=== PATIENT | female | born 1935 | race Caucasian/White ===

== ENCOUNTER → 2018-02-08 11:17 | Outpatient (CLI) | payer MEDICARE, OTHER, SELFPAY ==
--- NOTE | 2018-02-08 | DI.RAD.S_ITS ---
PROCEDURE: XR CHEST 2V INDICATIONS: SCREENING FOR RESPIRATORY TUBERCULOSIS TECHNIQUE: 2 views of the chest were acquired. COMPARISON: [facility], CHEST 2 VIEW, 11/29/2015, 12:30. [facility], CHEST 2 VIEW, 12/25/2007, 17:38. [facility], CHEST 1 VIEW, 09/26/2007, 12:36. FINDINGS: Surgical changes and devices: None. Lungs and pleura: No pleural effusions or pneumothorax. Lungs are clear. Mediastinum: Mediastinal contours are normal. Heart size is normal. Bones and chest wall: No suspicious bony abnormalities. Soft tissues appear unremarkable. IMPRESSION: Mild interstitial prominence previously present, no pneumonia seen, no sign of active inflammation or chronic active tuberculosis. Linear atelectasis tracks slightly from the right hilum towards the right lateral pleural surface, previously present also in 2007 and 2006. Dictated by: Jamar Manjarrez M.D. on 02/08/2018 at 11:41 Approved by: Jamar Manjarrez M.D. on 02/08/2018 at 11:42
== END ==
PROVIDERS: Family Provider Internal Medicine; PCP Internal Medicine; Visit Provider Internal Medicine
DX: Z11.1 Encounter for screening for respiratory tuberculosis (principal)
CPT/HCPCS: 71046

== ENCOUNTER → 2018-03-24 17:13 | Outpatient (CLI) | payer MEDICARE, OTHER, SELFPAY ==
[2018-02-10 18:18] VITALS: BMI 37.5
[2018-03-28 04:17] LABS: QuantiFERON TB Positive (Negative)
== END ==
PROVIDERS: Family Provider Internal Medicine; PCP Internal Medicine; Visit Provider Physician Assistant
DX: L40.0 Psoriasis vulgaris (principal)
CPT/HCPCS: 36415; 86480

== ENCOUNTER → 2018-06-24 10:13 | Outpatient (CLI) | payer MEDICARE, OTHER, SELFPAY ==
[2018-02-10 18:18] VITALS: BMI 37.5
[2018-06-24 11:29] LABS: Alanine Aminotransferase 34 IU/L (9-52); Aspartate Aminotransferase 26 IU/L (14-36); BUN Creatinine Ratio 29.2 (6-22); Blood Urea Nitrogen 35 mg/dL (7-17); Calcium 9.3 mg/dL (8.4-10.2); Carbon Dioxide 27 mmol/L (22-32); Chloride 101 mmol/L (98-107); Cholesterol 163 mg/dL (140-199); Estimated Glomerular Filt Rate 43.1 mL/min (>60); Glucose 186 mg/dL (80-110); HDL Cholesterol 36 mg/dL (40-60); HEMOLYSIS < 15 (0-50); LDL Cholesterol Calculated 51 mg/dL (<100); Potassium 4.5 mmol/L (3.4-5.1); Sodium 139 mmol/L (137-145); Triglycerides 378 mg/dL (35-150)
[2018-06-24 12:19] LABS: TSH w/ Reflex to FT4 3.11 uIU/mL (0.47-4.68)
== END ==
PROVIDERS: PCP Internal Medicine; Visit Provider Internal Medicine
DX: I10 Essential (primary) hypertension (principal); E03.9 Hypothyroidism, unspecified; E78.2 Mixed hyperlipidemia
CPT/HCPCS: 36415; 80048; 80061; 84443; 84450; 84460

== ENCOUNTER → 2018-09-26 12:02 | Outpatient (CLI) | payer MEDICARE, OTHER, SELFPAY ==
[2018-02-10 18:18] VITALS: BMI 37.5
--- NOTE | 2018-09-26 12:05 | DI.RAD.S_ITS ---
PROCEDURE: XR CHEST 2V INDICATIONS: cough TECHNIQUE: 2 views of the chest were acquired. COMPARISON: [facility], CR, XR CHEST 2V, 02/08/2018, 11:20. FINDINGS: Surgical changes and devices: None. Lungs and pleura: No pleural effusions or pneumothorax. Mild pulmonary vascular congestion is seen. Increased bronchovascular markings and bilateral hilar region are noted with mild bronchial wall thickening. No definite focal infiltrate. Mediastinum: Mediastinal contours are normal. Heart size is normal. Bones and chest wall: No suspicious bony abnormalities. Soft tissues appear unremarkable. IMPRESSION: Suggestion of mild reactive airway disease such as bronchitis or asthma. No focal infiltrate. Dictated by: Shiv Hoover M.D. on 09/26/2018 at 13:15 Approved by: Shiv Hoover M.D. on 09/26/2018 at 13:18
== END ==
PROVIDERS: Family Provider Internal Medicine; PCP Internal Medicine; Visit Provider Physician Assistant
DX: R05 Cough (principal)
CPT/HCPCS: 71046

== ENCOUNTER 2018-09-29 20:27 | Emergency (ER) | payer MEDICARE, OTHER, SELFPAY ==
[2018-02-10 18:18] VITALS: BMI 37.5
[2018-09-29 20:41] VITALS: BP 171/108; PULSE 89; RESP 12; TEMP 36.6; O2SAT 98
[2018-09-29 20:48] VITALS: BP 171/108; PULSE 89; RESP 12; TEMP 36.6; O2SAT 98
--- NOTE | 2018-09-29 21:06 | DI.RAD.S_ITS ---
PROCEDURE: XR CHEST 2V INDICATIONS: short of breath, cough for 2 weeks TECHNIQUE: 2 views of the chest were acquired. COMPARISON: [facility], CR, XR CHEST 2V, 09/26/2018, 12:04. FINDINGS: Surgical changes and devices: None. Lungs and pleura: No pleural effusions or pneumothorax. She prominent perihilar patchy opacities, right greater left. There is also central airway thickening Mediastinum: Mediastinal contours are normal. Heart size is normal. Bones and chest wall: No suspicious bony abnormalities. Soft tissues appear unremarkable. IMPRESSION: Central airway thickening and prominent perihilar patchy opacities suggestive of viral/atypical pneumonia. Findings appear slightly worsened since 09/26/18 Dictated by: Jon Florian M.D. on 09/29/2018 at 21:25 Approved by: Jon Florian M.D. on 09/29/2018 at 21:26
--- NOTE | 2018-09-29 21:27 | ED.URI ---
HPI - URI/Sore Throat General Chief Complaint: Upper Respiratory Symptoms Stated Complaint: DIFFICULTY BREATHING Time Seen by Provider: 09/29/18 21:02 Source: patient and family Mode of arrival: ambulatory Limitations: no limitations History of Present Illness HPI Narrative: 83-year-old female, former smoker with history of AFib on anticoagulation presents with 2 weeks of upper respiratory symptoms including runny nose, sneezing and cough. She has had subjective low-grade fever but denies shaking chills. She has had no nausea, vomiting or diarrhea. She had a chest x-ray a few days ago and just today was in touch with her primary care provider whom started her on Levaquin, she has had 1 dose. She denies nausea, vomiting or diarrhea. She is not in significant respiratory distress and requires no supplemental oxygen MD Complaint: cough Onset (ago): day(s) Duration: constant Severity: mild Relieving factors: nothing Exacerbating factors: exertion Description of mucous: clear Able to tolerate fluids by mouth: Yes Associated symptoms: fever, rhinorrhea, nasal congestion and cough Related Data Home Medications Medication Instructions Recorded Confirmed LEVOTHYROXINE SODIUM (SYNTHROID) 0.125 mg PO DAILY #0 01/26/11 02/10/18 [CO Q-10] 1 tab PO DAILY #0 01/26/11 02/10/18 [OMEGA 3] 1,000 mg PO DAILY #0 01/26/11 02/10/18 [DTEZLA] 1 tab PO Q12H #0 07/27/17 02/10/18 [SUN-CHLORENA] 200 g PO 10XD #0 07/27/17 02/10/18 [TUMERIC] 1 cap PO DAILY #0 07/27/17 02/10/18 allopurinol 300 mg PO QDAY #0 07/27/17 02/10/18 atorvastatin 40 mg PO HS #0 07/27/17 02/10/18 cyanocobalamin (vitamin B-12) 1,000 mcg PO DAILY #0 07/27/17 02/10/18 diazepam 5 mg PO TID PRN 02/10/18 02/10/18 levothyroxine 125 mcg PO DAILY 02/10/18 02/10/18 valsartan-hydrochlorothiazide 320 mg PO DAILY 02/10/18 02/10/18 Previous Rx's Medication Instructions Recorded oxycodone 5 mg PO Q4-6H PRN #30 tab 02/10/18 hydroxyzine pamoate 25 mg PO Q6H PRN #30 cap 02/11/18 albuterol sulfate HFA 90 2 puff INHALATION Q4-6H PRN #8.5 09/26/18 mcg/actuation aerosol inhaler gram Allergies Allergy/AdvReac Type Severity Reaction Status Date / Time celecoxib [CELECOXIB] Allergy Intermediate rash Verified 09/29/18 20:43 ibuprofen [IBUPROFEN] Allergy Intermediate Facial Verified 09/29/18 20:43 Edema & Rash codeine [CODEINE] Allergy Unknown chest pain Verified 09/29/18 20:43 iodine [IODINE] Allergy Unknown Verified 09/29/18 20:43 NSAIDS (Non-Steroidal Allergy Unknown Verified 09/29/18 20:43 Anti-Inflamma [NSAIDS (NON-STEROIDAL ANTI-INFLAMMA] Penicillins [PENICILLINS] Allergy Unknown Verified 09/29/18 20:43 Review of Systems Review of Systems All systems reviewed & are unremarkable except as noted in HPI and below Constitutional Denies chills, Denies fever(s), Denies lethargy and Denies weakness Eyes Denies change in vision, Denies eye discharge, Denies irritation and Denies loss of vision ENT Ears, Nose, Mouth, and Throat: Denies change in voice, Denies neck pain and Denies sore throat Cardiovascular Denies chest pain, Denies irregular heart rhythm, Denies lightheadedness, Denies palpitations, Reports dyspnea, Denies dyspnea on exertion and Denies orthopnea Respiratory Reports cough, Reports dyspnea, Denies dyspnea on exertion and Reports wheezing Gastrointestinal Gastrointestinal: Denies abdominal pain, Denies change in bowel habits, Denies diarrhea, Denies nausea and Denies vomiting Genitourinary Denies hematuria, Denies flank pain, Denies urinary incontinence and Denies urinary urgency Musculoskeletal Denies neck pain Integumentary/Breasts Denies pruritus, Denies erythema, Denies rash and Denies wounds Neurologic Denies confusion, Denies loss of vision and Denies weakness Psychiatric Denies anxiety, Denies confusion, Denies depression, Denies homicidal ideation and Denies suicidal ideation Endocrine Denies palpitations Hematologic/Lymphatic Denies easy bruising Allergic/Immunologic Reports wheezing PFSH Medical History Cervical spondylosis with radiculopathy (Acute) Spinal stenosis in cervical region (Acute) Anginal pain (Acute) Unstable angina (Acute) Achilles bursitis or tendinitis (Acute) Angioneurotic edema, subsequent encounter (Acute) CVA (cerebral vascular accident) (Acute) Calcaneal spur (Acute) Cellulitis of left axilla (Acute) Cervical spinal stenosis (Acute) Chest pain, unspecified (Acute) Cholecystitis, acute (Acute) Chronic kidney disease (Acute) Dermatitis (Acute) Gout (Acute) 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 (Acute) Hyperlipemia (Acute) Hypothyroidism (Acute) Impaired fasting glucose (Acute) Insomnia (Acute) Kidney stone (Acute) PAD (peripheral artery disease) (Acute) Paresthesia of skin (Acute) Psoriasis (Acute) Right shoulder pain (Acute) Uric acid nephrolithiasis (Acute) Weakness (Acute) Surgical History History of cholecystectomy (Acute) Social History household members: family alcohol intake: current Exam Narrative Exam Narrative: 83-year-old female in no obvious or significant respiratory distress, pleasant Initial Vital Signs Initial Vital Signs: Vital Signs Temperature 97.9 F 09/29/18 20:41 Pulse Rate 89 09/29/18 20:41 Respiratory Rate 12 09/29/18 20:41 Blood Pressure 171/108 H 09/29/18 20:41 Pulse Oximetry 98 09/29/18 20:41 Const General: cooperative, well developed and in distress Nutritional Appearance: well nourished Orientation: alert, awake, oriented x3 and not confused [facility] Head: normal to inspection Ears: hearing grossly normal bilaterally Nose: external nose normal Face and sinus: normal facial exam Eyes General: appearance normal, both eyes and all related structures Eyelids: eyelids normal Conjunctivae: conjunctivae normal Sclera: sclerae normal Pupils: PERRL EOM: EOM intact bilaterally Neck Neck: normal visual inspection, trachea midline, No lymphadenopathy, No midline deformity and No JVD Lymphatic: No lymphedema Chest Chest: normal inspection of the chest Resp Effort & Inspection: normal respiratory effort, able to speak in complete sentences, no respiratory distress and no use of accessory muscles Auscultation: clear to auscultation bilaterally, crackles, no rales, no rhonchi and wheezes Cardio Rate: regular rate Rhythm: abnormal rhythm Heart Sounds: no click, no gallops, no murmurs and no rubs Pulses: normal peripheral pulses GI Inspection: non-distended Palpation: soft, no hepatosplenomegaly, No guarding, No pulsatile mass and No tender Auscultation: normal bowel sounds Back/Spine/Pelvis Back: No CVA tenderness Cervical Spine: cervical ROM normal and No pain with cervical ROM Thoracic/Lumbar Spine: thoracic and lumbar spine normal to inspection Neuro General: alert, oriented x3, gait normal and no focal motor deficits Speech: speech normal Extrem General: full ROM, no clubbing, cyanosis or edema, no pedal edema and no calf tenderness Course Orders Ordered: ED Orders 09/29/18 21:06 Chest [XR chest 2V] Stat 09/29/18 21:44 B Type Natriuretic Peptide Stat Basic Metabolic Panel Stat Complete Blood Count AUTO DIFF Stat Procalcitonin Stat Troponin I Stat Vital Signs - 8 hr 09/29/18 20:41 09/29/18 20:48 09/29/18 21:30 Temperature 97.9 F 97.9 F Pulse Rate 89 89 80 Respiratory Rate 12 12 22 Blood Pressure 171/108 H 171/108 H Blood Pressure [Left Arm] 161/80 H Pulse Oximetry 98 98 96 MDM - URI/Sore Throat Differential Diagnosis Differential diagnosis: Likely upper respiratory infection, viral infection, bronchitis and influenza Medical Records Attestation: I reviewed the patient's medical records. Lab Data Attestation: I reviewed the patient's lab results. Result diagrams: 09/29/18 21:44 09/29/18 21:44 Lab Results 09/29/18 09/29/18 09/29/18 Range/Units 21:44 21:44 21:44 WBC 13.4 H (4.5-11.0) X10^3/uL RBC 4.32 (4.0-5.2) X10^6/uL Hgb 12.9 (12.0-16.0) g/dL Hct 39.5 (36-46) % MCV 91.5 (80-100) fL MCH 29.8 (26-34) PG MCHC 32.5 (30-36) % RDW 15.0 H (11.6-14.8) % Plt Count 332 (150-400) X10^3/uL Neut % (Auto) 66.8 (50-75) % Lymph % (Auto) 22.0 L (25-40) % Mitchell % (Auto) 7.5 (3-14) % Eos % (Auto) 2.5 (2-4) % Baso % (Auto) 1.2 (0-2) % Neut # (Auto) 9000 H (9479-5762) /uL Sodium 139 (137-145) mmol/L Potassium 4.3 (3.4-5.1) mmol/L Chloride 99 (98-107) mmol/L Carbon Dioxide 28 (22-32) mmol/L BUN 30 H (7-17) mg/dL Creatinine 1.10 H (0.52-1.04) mg/dL Estimated GFR 47.7 L (>60) mL/min BUN/Creatinine Ratio 27.3 H (6-22) Glucose 143 H (80-110) mg/dL Calcium 9.2 (8.4-10.2) mg/dL Troponin I < 0.012 (0.01-0.034) ng/mL B-Natriuretic Peptide 228 H (<100) Procalcitonin < 0.05 (<0.5) ng/mL Imaging Data Chest x-ray: Radiologist's impression: View Report History Print [address] [address] XRay Report Signed Patient: Yulia Sow MR#: [id number] : 1935 Acct:[id number] Age/Sex: 83 / F Date of Service: 09/29/18 Loc: ED Accession Number: [id number] Procedure: XR chest 2V Ordering Provider: Howard Escobar D.O. PROCEDURE: XR CHEST 2V INDICATIONS: short of breath, cough for 2 weeks TECHNIQUE: 2 views of the chest were acquired. COMPARISON: [facility], , XR CHEST 2V, 09/26/2018, 12:04. FINDINGS: Surgical changes and devices: None. Lungs and pleura: No pleural effusions or pneumothorax. She prominent perihilar patchy opacities, right greater left. There is also central airway thickening Mediastinum: Mediastinal contours are normal. Heart size is normal. Bones and chest wall: No suspicious bony abnormalities. Soft tissues appear unremarkable. IMPRESSION: Central airway thickening and prominent perihilar patchy opacities suggestive of viral/atypical pneumonia. Findings appear slightly worsened since 09/26/18 Dictated by: Jon Florian M.D. on 09/29/2018 at 21:25 Approved by: Jon Florian M.D. on 09/29/2018 at 21:26 [facility] Narrative Medical decision making narrative: 83F with multiple commorbidities presents with URI x2 weeks. CXR x2 unremarkable. No oxygen requirements. Patient with good social support Discharge Plan Departure Patient Disposition: Home Clinical Impression: Atypical pneumonia Discharge Date/Time: 09/29/18 22:26 Interventions: ED Discharge Assessment Last Done: 09/29/18 22:23 Instructions: DI for Atypical Pneumonia Activity Restrictions/Additional Instructions: *You have been diagnosed with [ atypical (likely viral) pneumonia ] *What to do: *Take medications as directed *Follow up with your primary care provider in 2-3 days, call for an appointment. Let them know you were seen in the Emergency Department and that we ask that you be seen in follow up *Return to ER if you should have any new, worsening or concerning symptoms Prescriptions: No Action LEVOTHYROXINE SODIUM (SYNTHROID) tablet 0.125 mg PO DAILY Qty: 0 RF: 0 [CO Q-10] 1 tab PO DAILY Qty: 0 RF: 0 [OMEGA 3] 1,000 mg PO DAILY Qty: 0 RF: 0 atorvastatin 40 MG tablet 40 mg PO HS Qty: 0 RF: 0 allopurinol 300 MG tablet 300 mg PO QDAY Qty: 0 RF: 0 cyanocobalamin (vitamin B-12) 1,000 MCG tablet extended release 1,000 mcg PO DAILY Qty: 0 RF: 0 [DTEZLA] 1 tab PO Q12H Qty: 0 RF: 0 [SUN-CHLORENA] 200 g PO 10XD Qty: 0 RF: 0 [TUMERIC] 1 cap PO DAILY Qty: 0 RF: 0 albuterol sulfate 90 mcg/actuation HFA aerosol inhaler 2 puff INHALATION Q4-6H PRN (Reason: shortness of breath) Qty: 8.5 RF: 1 levothyroxine 125 mcg Tablet 125 mcg PO DAILY RF: 0 valsartan-hydrochlorothiazide 320 mg capsule 320 mg PO DAILY RF: 0 oxycodone 5 mg tablet 5 mg PO Q4-6H PRN (Reason: pain) Qty: 30 RF: 0 diazepam 5 MG tablet 5 mg PO TID PRN (Reason: Anxiety) RF: 0 hydroxyzine pamoate 25 mg Capsule 25 mg PO Q6H PRN (Reason: Nausea And Vomiting) Qty: 30 RF: 0 Referrals: Hollie Constantino MD [Primary Care Provider] -
[2018-09-29 21:30] VITALS: BP 161/80; PULSE 80; RESP 22; O2SAT 96
[2018-09-29 21:58] LABS: Add Manual Diff / Slide Review NO; Basophils Percent Auto 1.2 % (0-2); Eosinophils Percent Auto 2.5 % (2-4); Hematocrit 39.5 % (36-46); Hemoglobin 12.9 g/dL (12.0-16.0); Mean Corpuscular HGB Conc 32.5 % (30-36); Mean Corpuscular Hemoglobin 29.8 PG (26-34); Mean Corpuscular Volume 91.5 fL (80-100); Monocytes Percent Auto 7.5 % (3-14); Neutrophils Absolute Auto 9000 /uL (1500-7000); Neutrophils Percent Auto 66.8 % (50-75); Platelet Count 332 X10^3/uL (150-400); Red Blood Cell Count 4.32 X10^6/uL (4.0-5.2); White Blood Cell Count 13.4 X10^3/uL (4.5-11.0)
[2018-09-29 22:04] LABS: BUN Creatinine Ratio 27.3 (6-22); Blood Urea Nitrogen 30 mg/dL (7-17); Calcium 9.2 mg/dL (8.4-10.2); Carbon Dioxide 28 mmol/L (22-32); Chloride 99 mmol/L (98-107); Estimated Glomerular Filt Rate 47.7 mL/min (>60); Glucose 143 mg/dL (80-110); HEMOLYSIS < 15 (0-50); Potassium 4.3 mmol/L (3.4-5.1); Sodium 139 mmol/L (137-145)
[2018-09-29 22:16] LABS: Troponin I < 0.012 ng/mL (0.01-0.034)
[2018-09-29 22:17] LABS: B Type Natriuretic Peptide 228 (<100)
[2018-09-29 22:24] LABS: Procalcitonin < 0.05 ng/mL (<0.5)
== END 2018-09-29 22:26 | disposition home or self-care (01) ==
PROVIDERS: Emergency Provider Emergency Medicine; Family Provider Internal Medicine; PCP Internal Medicine
DX: J18.9 Pneumonia, unspecified organism (principal)
CPT/HCPCS: 36415; 71046; 80048; 83880; 84145; 84484; 85025; 99282; 99284

== ENCOUNTER → 2019-01-13 11:02 | Outpatient (CLI) | payer MEDICARE, OTHER, SELFPAY ==
[2018-02-10 18:18] VITALS: BMI 37.5
[2019-01-13 13:47] LABS: Alanine Aminotransferase 22 IU/L (9-52); Aspartate Aminotransferase 26 IU/L (14-36); BUN Creatinine Ratio 34.2 (6-22); Blood Urea Nitrogen 41 mg/dL (7-17); Calcium 9.5 mg/dL (8.4-10.2); Carbon Dioxide 24 mmol/L (22-32); Chloride 103 mmol/L (98-107); Cholesterol 221 mg/dL (140-199); Estimated Glomerular Filt Rate 43.1 mL/min (>60); Glucose 129 mg/dL (80-110); HDL Cholesterol 33 mg/dL (40-60); HEMOLYSIS < 15 (0-50); Potassium 4.8 mmol/L (3.4-5.1); Sodium 139 mmol/L (137-145); Triglycerides 449 mg/dL (35-150)
== END ==
PROVIDERS: Family Provider Naturopath; PCP Internal Medicine; Visit Provider Internal Medicine
DX: I10 Essential (primary) hypertension (principal); E78.2 Mixed hyperlipidemia
CPT/HCPCS: 36415; 80048; 80061; 84450; 84460

== ENCOUNTER → 2019-04-21 10:24 | Outpatient (CLI) | payer MEDICARE, OTHER, SELFPAY ==
[2018-02-10 18:18] VITALS: BMI 37.5
[2019-04-21 11:08] LABS: Hemoglobin A1C% w Est Avg Glu 6.1 % (4.0-6.0)
[2019-04-21 11:35] LABS: Blood Urea Nitrogen 29 mg/dL (7-17); Calcium 9.6 mg/dL (8.4-10.2); Carbon Dioxide 26 mmol/L (22-32); Chloride 104 mmol/L (98-107); Cholesterol 182 mg/dL (140-199); Estimated Glomerular Filt Rate 53.1 mL/min (>60); Glucose 133 mg/dL (80-110); HDL Cholesterol 32 mg/dL (40-60); HEMOLYSIS 23 (0-50); LDL Cholesterol Calculated 72 mg/dL (<100); Potassium 4.3 mmol/L (3.4-5.1); Sodium 139 mmol/L (137-145); Triglycerides 390 mg/dL (35-150)
[2019-04-21 12:03] LABS: TSH w/ Reflex to FT4 1.96 uIU/mL (0.47-4.68)
== END ==
PROVIDERS: Family Provider Naturopath; PCP Internal Medicine; Visit Provider Internal Medicine
DX: E11.9 Type 2 diabetes mellitus without complications (principal); I10 Essential (primary) hypertension; E03.9 Hypothyroidism, unspecified; E78.2 Mixed hyperlipidemia
CPT/HCPCS: 36415; 80048; 80061; 83036; 84443

== ENCOUNTER → 2019-11-09 13:36 | Outpatient (CLI) | payer MEDICARE, OTHER, SELFPAY ==
[2018-02-10 18:18] VITALS: BMI 37.5
[2019-11-09 14:21] LABS: Alanine Aminotransferase 27 IU/L (<35); Albumin 4.4 g/dL (3.5-5.0); Albumin Globulin Ratio 1.3 (1.0-2.8); Alkaline Phosphatase 93 U/L (38-126); Aspartate Aminotransferase 30 IU/L (14-36); Blood Urea Nitrogen 30 mg/dL (7-17); Calcium 9.7 mg/dL (8.4-10.2); Carbon Dioxide 24 mmol/L (22-32); Chloride 105 mmol/L (98-107); Cholesterol 198 mg/dL (140-199); Estimated Glomerular Filt Rate 53.1 mL/min (>60); Globulin 3.5 g/dL (1.7-4.1); Glucose 123 mg/dL (80-110); HDL Cholesterol 38 mg/dL (40-60); HEMOLYSIS < 15 (0-50); LDL Cholesterol Calculated 105 mg/dL (<100); Potassium 4.4 mmol/L (3.4-5.1); Sodium 140 mmol/L (137-145); Total Protein 7.9 g/dL (6.3-8.2); Triglycerides 273 mg/dL (35-150)
[2019-11-09 14:27] LABS: Hemoglobin A1C% w Est Avg Glu 6.6 % (4.0-6.0)
[2019-11-09 15:20] LABS: TSH w/ Reflex to FT4 4.68 uIU/mL (0.47-4.68)
== END ==
PROVIDERS: Family Provider Naturopath; PCP Internal Medicine; Referring Provider Internal Medicine; Visit Provider Internal Medicine
DX: E11.9 Type 2 diabetes mellitus without complications (principal); E03.9 Hypothyroidism, unspecified; I10 Essential (primary) hypertension; E78.2 Mixed hyperlipidemia; M1A.40X0 Other secondary chronic gout, unspecified site, without tophus (tophi)
CPT/HCPCS: 36415; 80053; 80061; 83036; 84443; 84550

== ENCOUNTER → 2020-05-13 10:50 | Outpatient (CLI) | payer MEDICARE, OTHER, SELFPAY ==
[2018-02-10 18:18] VITALS: BMI 37.5
[2020-05-13 12:24] LABS: Alanine Aminotransferase 18 IU/L (<35); Albumin 4.1 g/dL (3.5-5.0); Albumin Globulin Ratio 1.3 (1.0-2.8); Alkaline Phosphatase 95 U/L (38-126); Aspartate Aminotransferase 24 IU/L (14-36); BUN Creatinine Ratio 37.5 (6-22); Bilirubin Total 1.1 mg/dL (0.2-1.3); Blood Urea Nitrogen 39 mg/dL (7-17); Calcium 9.3 mg/dL (8.4-10.2); Carbon Dioxide 25 mmol/L (22-32); Chloride 103 mmol/L (98-107); Cholesterol 175 mg/dL (140-199); Estimated Glomerular Filt Rate 50.6 mL/min (>60); Globulin 3.2 g/dL (1.7-4.1); Glucose 121 mg/dL (80-110); HDL Cholesterol 34 mg/dL (40-60); HEMOLYSIS 20 (0-50); Hemoglobin A1C% w Est Avg Glu 6.5 % (4.0-6.0); LDL Cholesterol Calculated 83 mg/dL (<100); Potassium 5.1 mmol/L (3.4-5.1); Sodium 138 mmol/L (137-145); Total Protein 7.3 g/dL (6.3-8.2); Triglycerides 288 mg/dL (35-150)
== END ==
PROVIDERS: Family Provider Naturopath; PCP Internal Medicine; Referring Provider Internal Medicine; Visit Provider Internal Medicine
DX: I10 Essential (primary) hypertension (principal); E78.2 Mixed hyperlipidemia; E11.9 Type 2 diabetes mellitus without complications
CPT/HCPCS: 36415; 80053; 80061; 83036

== ENCOUNTER → 2020-11-12 18:52 | Outpatient (ROUT) | payer MEDICARE, OTHER, SELFPAY ==
[2018-02-10 18:18] VITALS: BMI 37.5
== END ==
PROVIDERS: Family Provider Naturopath; PCP Internal Medicine; Visit Provider Internal Medicine
DX: N39.0 Urinary tract infection, site not specified (principal)
CPT/HCPCS: 87086

== ENCOUNTER → 2020-11-19 11:16 | Outpatient (CLI) | payer MEDICARE, OTHER, SELFPAY ==
[2018-02-10 18:18] VITALS: BMI 37.5
[2020-11-19 12:17] LABS: Alanine Aminotransferase 30 IU/L (<35); Albumin 4.1 g/dL (3.5-5.0); Albumin Globulin Ratio 1.3 (1.0-2.8); Alkaline Phosphatase 87 U/L (38-126); Aspartate Aminotransferase 29 IU/L (14-36); BUN Creatinine Ratio 30.1 (6-22); Bilirubin Total 0.9 mg/dL (0.2-1.3); Blood Urea Nitrogen 34 mg/dL (7-17); Calcium 9.6 mg/dL (8.4-10.2); Carbon Dioxide 26 mmol/L (22-32); Chloride 104 mmol/L (98-107); Cholesterol 188 mg/dL (140-199); Globulin 3.2 g/dL (1.7-4.1); Glucose 139 mg/dL (80-110); HDL Cholesterol 43 mg/dL (40-60); HEMOLYSIS < 15 (0-50); LDL Cholesterol Calculated 99 mg/dL (<100); Potassium 4.4 mmol/L (3.4-5.1); Sodium 137 mmol/L (137-145); Total Protein 7.3 g/dL (6.3-8.2); Triglycerides 231 mg/dL (35-150)
[2020-11-19 12:48] LABS: TSH w/ Reflex to FT4 2.56 uIU/mL (0.47-4.68)
== END ==
PROVIDERS: Family Provider Naturopath; PCP Internal Medicine; Referring Provider Internal Medicine; Visit Provider Internal Medicine
DX: I10 Essential (primary) hypertension (principal); E03.9 Hypothyroidism, unspecified; E78.5 Hyperlipidemia, unspecified
CPT/HCPCS: 36415; 80053; 80061; 84443

== ENCOUNTER → 2021-02-19 15:41 | Outpatient (CLI) | payer MEDICARE, OTHER, SELFPAY ==
[2018-02-10 18:18] VITALS: BMI 37.5
--- NOTE | 2021-02-19 | DI.ECHO.S_ITS ---
[place] [facility]---------+ [facility] +---------+ : : [address] : : : : [id number] : : : : Phone: [phone]+ Echocardiogram Report + + :Name: GRISELDA QUIROZ Study Date: 02/19/2021 Height: 62.5 in: :[facility] ReadingLocation: Weight: 210 lb : : Gender: Female BSA: 2.0 m2 : :: 1935 Age: 86 yrs BP: 154/84 mmHg: :Reason For Study: DYSPNEA : :Ordering Physician: SEBLE, : :OMID Performed By: Stacy Avina : :Referring: OMID PRUETT : + + Interpretation Summary Patient denied Definity contrast. The left ventricle is normal in size and wall thickness. The ejection fraction is estimated to be 65-70%. Diastolic function could not be accurately assessed due to atrial fibrillation. The right ventricle is normal in size and function. The right ventricular systolic pressure is estimated to be at least 25 mmHg based on an estimated right atrial pressure of 3 mm Hg. The left atrium is severely dilated. The right atrium is moderately dilated. There is no significant valvular heart disease. The ascending aorta is mildly enlarged. Procedure: A two-dimensional transthoracic echocardiogram with color flow and Doppler was performed. The study quality was technically difficult. There is no prior echocardiogram noted for this patient. The patient was in atrial fibrillation with heart rates between 75-92 bpm during the exam. Left Ventricle: The left ventricle is normal in size and wall thickness. The ejection fraction is estimated to be 65-70%. Diastolic function could not be accurately assessed due to atrial fibrillation. Right Ventricle: The right ventricle is normal in size and function. Atria: The left atrium is severely dilated. The right atrium is moderately dilated. There is no Doppler evidence for an interatrial shunt. Mitral Valve: There is moderate mitral annular calcification. The mitral valve leaflets appear mildly thickened, but open well. There is trace mitral regurgitation. Aortic Valve: The aortic valve is not well visualized. There is no aortic valve stenosis. No aortic regurgitation is present. Tricuspid Valve: The tricuspid valve is normal in structure and function. There is mild tricuspid regurgitation. The right ventricular systolic pressure is estimated to be at least 25 mmHg based on an estimated right atrial pressure of 3 mm Hg. Pulmonic Valve: The pulmonic valve is not well visualized. There is no pulmonic valvular regurgitation. There is no significant valvular heart disease. Great Vessels: The aortic root is normal size. The ascending aorta is mildly enlarged. The IVC is of normal diameter and collapses greater than 50% with a sniff. This suggests a low right atrial pressure of 3 mm Hg. Pericardium/ Pleura There is no pericardial effusion. There is no pleural effusion. MMode/2D Measurements & Calculations LVIDd: 4.3 cm LVOT diam: 2.2 cm LVIDs: 2.8 cm asc Aorta Diam: 3.6 cm FS: 34.6 % Ao Arch Diam (Prox Trans): 2.5 cm IVSd: 1.0 cm LVPWd: 1.0 cm LV linton. diameter/BSA (cm/m^2): 2.2 LV sys. diameter/BSA (cm/m^2): 1.4 LA A2 area: 28.9 cm2 RA long axis: 5.8 cm LA A4 area: 25.6 cm2 RA area: 24.4 cm2 LA length (vol): 5.8 cm RA vol: 86.5 ml LA vol: 107.6 ml RA : 44.1 ml/m2 LA vol index: 54.8 ml/m2 IVC diam: 1.7 cm RVD1 (basal): 2.9 cm TAPSE: 1.6 cm Doppler Measurements & Calculations Ao V2 max: 114.1 cm/sec LVOT Max Lupillo: 59.7 cm/sec Ao V2 mean: 85.8 cm/sec LV V1 max P.4 mmHg Ao max P.2 mmHg LV V1 VTI: 12.8 cm Ao mean P.1 mmHg CANDI(I,D): 2.1 cm2 Ao V2 VTI: 22.5 cm CANDI(V,D): 2.0 cm2 sev ratio: 0.57 CANDI indexed to BSA (cm^2/m^2): 1.1 MV E max lupillo: 106.1 cm/sec TR max lupillo: 234.7 cm/sec MV A max lupillo: 1.6 cm/sec TR max P.3 mmHg MV E/A: 67.1 Med Peak E' Lupillo: 6.1 cm/sec E/E' med: 17.4 Lat Peak E' Lupillo: 8.2 cm/sec E/E' lat: 13.0 E/e' average: 15.2 MV dec time: 0.23 sec SV(LVOT): 47.9 ml Reading Physician:05:24 PM
== END ==
PROVIDERS: Family Provider Naturopath; PCP Internal Medicine; Referring Provider Internal Medicine; Visit Provider Internal Medicine
DX: I07.1 Rheumatic tricuspid insufficiency (principal); I77.89 Other specified disorders of arteries and arterioles; R06.00 Dyspnea, unspecified
CPT/HCPCS: 93306

== ENCOUNTER → 2021-02-28 18:45 | Outpatient (ROUT) | payer MEDICARE, OTHER, SELFPAY ==
[2018-02-10 18:18] VITALS: BMI 37.5
[2021-02-28 19:25] LABS: Alanine Aminotransferase 20 IU/L (<35); Albumin 3.9 g/dL (3.5-5.0); Albumin Globulin Ratio 1.3 (1.0-2.8); Alkaline Phosphatase 74 U/L (38-126); Aspartate Aminotransferase 27 IU/L (14-36); BUN Creatinine Ratio 34.7 (6-22); Bilirubin Total 0.6 mg/dL (0.2-1.3); Blood Urea Nitrogen 35 mg/dL (7-17); Calcium 9.5 mg/dL (8.4-10.2); Carbon Dioxide 28 mmol/L (22-32); Chloride 103 mmol/L (98-107); Estimated Glomerular Filt Rate 52.2 mL/min (>60); Glucose 104 mg/dL (80-110); HEMOLYSIS < 15 (0-50); Potassium 4.8 mmol/L (3.4-5.1); Sodium 139 mmol/L (137-145); Total Protein 6.9 g/dL (6.3-8.2)
== END ==
PROVIDERS: Family Provider Naturopath; PCP Internal Medicine; Visit Provider Internal Medicine
DX: I50.32 Chronic diastolic (congestive) heart failure (principal)
CPT/HCPCS: 80053

== ENCOUNTER → 2021-07-26 12:48 | Outpatient (CLI) | payer MEDICARE, OTHER, SELFPAY ==
[2018-02-10 18:18] VITALS: BMI 37.5
--- NOTE | 2021-07-26 12:51 | DI.MG.S_ITS ---
BILATERAL DIGITAL SCREENING MAMMOGRAM 3D/2D WITH CAD: 07/26/2021 CLINICAL: Routine screening. Comparison is made to exams dated: 05/03/2020 mammogram, 01/05/2019 mammogram, and 11/11/2017 mammogram - [facility]. There are scattered fibroglandular elements in both breasts. Current study was also evaluated with a Computer Aided Detection (CAD) system. There is a biopsy clip in the right breast. No significant masses, calcifications, or other findings are seen in either breast. There has been no significant interval change. IMPRESSION: NEGATIVE There is no mammographic evidence of malignancy. A 1 year screening mammogram is recommended. This exam was interpreted at Station ID: [id number]. NOTE: For mammograms, a report in lay terms will be sent to the patient. Approximately 15% of breast malignancies will not be visualized mammographically. In the management of a palpable breast mass, a negative mammogram must not discourage biopsy of a clinically suspicious lesion. Electronically Signed By: Maurizio irizarry/jorge:07/28/2021 09:11:15 letter sent: Normal Exam ACR BI-RADS Category 1: Negative [id number]
== END ==
PROVIDERS: Family Provider Naturopath; PCP Internal Medicine; Referring Provider Internal Medicine; Visit Provider Internal Medicine
DX: Z12.31 Encounter for screening mammogram for malignant neoplasm of breast (principal)
CPT/HCPCS: 77063; 77067

== ENCOUNTER 2022-04-22 12:36 | Emergency (ER) | payer MEDICARE, OTHER, SELFPAY ==
[2018-02-10 18:18] VITALS: BMI 37.5
[2022-04-22 12:39] VITALS: BP 244/105; PULSE 77; RESP 17; TEMP 35.8; O2SAT 97; BMI 36.1
--- NOTE | 2022-04-22 12:45 | DI.RAD.S_ITS ---
PROCEDURE: XR CHEST 1V INDICATIONS: chest pain TECHNIQUE: One view of the chest was acquired. COMPARISON: [facility], CR, XR CHEST 2V, 09/29/2018, 21:10. FINDINGS: Surgical changes and devices: Postsurgical changes from prior anterior cervical discectomy fusion. Lungs and pleura: Diffuse interstitial prominence. Suggestion of mild perihilar airway thickening. No focal consolidation. Stable linear scarring of the right upper lung zone. No pneumothorax seen. No substantial pleural effusion. Mediastinum: Mediastinal contours appear normal. Heart size is normal. Bones and chest wall: No suspicious bony lesions. Overlying soft tissues appear unremarkable. IMPRESSION: Findings suggestive of an infectious/inflammatory process with viral or atypical pneumonia most likely. No focal consolidation. Mild pulmonary edema may have a similar appearance. Recommend follow up chest radiograph 4-6 weeks after treatment to document resolution of findings and/or return to baseline examination. Dictated by: Maurizio Sheets M.D. on 04/22/2022 at 13:54 Approved by: Maurizio Sheets M.D. on 04/22/2022 at 13:56
[2022-04-22 13:30] LABS: INR 1.5 (0.9-1.3); Prothrombin Time 16.3 SECONDS (10.1-12.7)
[2022-04-22 13:33] LABS: PTT Partial Thromboplastin Tim 35 SECONDS (26.4-36.2)
[2022-04-22 13:34] LABS: Add Manual Diff / Slide Review NO; Basophils Absolute Auto 0 /uL (0-100); Basophils Percent Auto 0.2 % (0-2); Eosinophils Absolute Auto 100 /uL (0-450); Eosinophils Percent Auto 2.1 % (2-4); Hematocrit 41.3 % (36-46); Hemoglobin 13.8 g/dL (12.0-16.0); Lymphocytes Absolute Auto 1800 /uL (1100-4500); Lymphocytes Percent Auto 25.4 % (25-40); Mean Corpuscular HGB Conc 33.4 % (30-36); Mean Corpuscular Volume 92.9 fL (80-100); Monocytes Absolute Auto 700 /uL (0-900); Monocytes Percent Auto 10.1 % (3-14); Neutrophils Absolute Auto 4300 /uL (1500-7000); Neutrophils Percent Auto 62.2 % (50-75); Platelet Count 224 X10^3/uL (150-400); Red Blood Cell Count 4.45 X10^6/uL (4.0-5.2); Red Cell Distribution Width 15.6 % (11.6-14.8); White Blood Cell Count 6.9 X10^3/uL (4.5-11.0)
[2022-04-22 13:39] LABS: Alanine Aminotransferase 18 IU/L (<35); Albumin Globulin Ratio 1.3 (1.0-2.8); Alkaline Phosphatase 85 U/L (38-126); Aspartate Aminotransferase 35 IU/L (14-36); BUN Creatinine Ratio 22.3 (6-22); Bilirubin Total 1.7 mg/dL (0.2-1.3); Blood Urea Nitrogen 23 mg/dL (7-17); Calcium 9.1 mg/dL (8.4-10.2); Carbon Dioxide 24 mmol/L (22-32); Chloride 104 mmol/L (98-107); Creatine Kinase 88 U/L (30-135); Estimated Glomerular Filt Rate 53 mL/min (>60); Globulin 3.2 g/dL (1.7-4.1); Glucose 113 mg/dL (80-110); HEMOLYSIS 22 (0-50); Lipase 53 U/L (23-300); Magnesium 1.9 mg/dL (1.6-2.3); Potassium 4.2 mmol/L (3.4-5.1); Sodium 137 mmol/L (137-145); Total Protein 7.2 g/dL (6.3-8.2)
[2022-04-22 13:44] VITALS: PULSE 77; RESP 32
[2022-04-22 13:46] VITALS: BP 211/95; PULSE 74; RESP 16; O2SAT 96
[2022-04-22 13:50] LABS: Troponin I < 0.012 ng/mL (0.01-0.034)
[2022-04-22 14:00] VITALS: BP 180/82; PULSE 70; RESP 17; O2SAT 96
--- NOTE | 2022-04-22 14:22 | ED_ITS ---
HPI - General Adult General Chief complaint: Hypertension Stated complaint: High BP, anxiety, chest pressure, lt arm pain Time Seen by Provider: 04/22/22 14:08 Source: patient Mode of arrival: Ambulatory History of Present Illness HPI narrative: Patient is a tena 87-year-old female history of hypertension atrial fibrillation presenting with chest discomfort and left arm pain and anxiety. She is on dialysis for anticoagulation. Last night she was feeling some heaviness in her chest. This morning she went to her PCP she was found to be extremely hypertensive. She did not take her blood pressure medications this morning. Her left shoulder does hurt whenever she moved it has been going on for a while. Her left hip also hurts. No nausea Johnnie playing no headache. She is noted to be extremely hypertensive. Patient is extremely anxious. She has an apartment that her daughter built her on their property. They are very close she has lifted the last 20 years. However now being alone in her apartment of insert extremely anxious anxious. She is unsure what makes her anxious. She can not quite pinpoint but it does seem to be getting worse. Daughter does not know what to do. I briefly discussed assisted living however it sounds as though her living situation is better than assisted living. She has her daughter there she has family everything is wheelchair accessible she has been there for numerous years, however the anxiety and being alone is new. Patient cannot pinpoint or figure out why she has suddenly so anxious Related Data Home Medications Medication Instructions Recorded Confirmed LEVOTHYROXINE SODIUM (SYNTHROID) 0.125 mg PO DAILY ##0 01/26/11 02/10/18 [CO Q-10] 1 tab PO DAILY ##0 01/26/11 02/10/18 [OMEGA 3] 1,000 mg PO DAILY ##0 01/26/11 02/10/18 [DTEZLA] 1 tab PO Q12H ##0 07/27/17 02/10/18 [SUN-CHLORENA] 200 g PO 10XD ##0 07/27/17 02/10/18 [TUMERIC] 1 cap PO DAILY ##0 07/27/17 02/10/18 allopurinol 300 mg tablet 300 mg PO QDAY ##0 07/27/17 02/10/18 atorvastatin 40 mg tablet 40 mg PO HS ##0 07/27/17 02/10/18 cyanocobalamin (vitamin B-12) 1,000 mcg PO DAILY ##0 07/27/17 02/10/18 1,000 mcg tablet,extended release diazepam 5 mg tablet 5 mg PO TID PRN Anxiety 02/10/18 02/10/18 levothyroxine 125 mcg tablet 125 mcg PO DAILY 02/10/18 02/10/18 valsartan-hydrochlorothiazide 320 mg PO DAILY 02/10/18 02/10/18 Previous Rx's Medication Instructions Recorded oxycodone 5 mg tablet 5 mg PO Q4-6H PRN pain #30 tabs 02/10/18 hydroxyzine pamoate 25 mg capsule 25 mg PO Q6H PRN Nausea And 02/11/18 Vomiting #30 caps albuterol sulfate 90 mcg/actuation 2 puff inhalation Q4-6H PRN 09/26/18 aerosol inhaler shortness of breath #8.5 grams cephalexin 500 mg capsule 500 mg PO BID 5 days #10 caps 04/22/22 Allergies Allergy/AdvReac Type Severity Reaction Status Date / Time celecoxib [CELECOXIB] Allergy Intermediate rash Verified 04/22/22 12:39 ibuprofen [IBUPROFEN] Allergy Intermediate Facial Verified 04/22/22 12:39 Edema & Rash codeine [CODEINE] Allergy Unknown chest pain Verified 04/22/22 12:39 iodine [IODINE] Allergy Unknown Verified 04/22/22 12:39 NSAIDS (Non-Steroidal Allergy Unknown Verified 04/22/22 12:39 Anti-Inflamma [NSAIDS (NON-STEROIDAL ANTI-INFLAMMA] Penicillins [PENICILLINS] Allergy Unknown Verified 04/22/22 12:39 Review of Systems Review of Systems Narrative: GENERAL: Denies chills, fatigue, malaise, fever, sweats, travel HEENT: Denies sinus pain, ear pain, sore throat, difficulty swallowing, neck pain RESPIRATORY: Denies dyspnea, cough, wheezing, hemoptysis, sputum. CARDIOVASCULAR: Denies chest pain, palpitations, orthopnea, edema GASTROINTESTINAL: Denies nausea, vomiting, abdominal pain, diarrhea, constipation, melena. : Denies dysuria, frequency, incontinence, hematuria, urinary retention, flank pain. MUSCULOSKELETAL: Denies weakness, joint pain, or bony pain SKIN: No rash, no erythema, no pruritus NEUROLOGIC: Denies weakness, dizziness, headache, numbness, change in speech, confusion PSYCHIATRIC: No concerning psychosocial issues. 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 Hyperlipemia Hypothyroidism Impaired fasting glucose Insomnia Kidney stone PAD (peripheral artery disease) Paresthesia of skin Psoriasis Right shoulder pain Spinal stenosis in cervical region Unstable angina Uric acid nephrolithiasis Weakness Surgical History History of cholecystectomy Social History household members: family Smoking Status: Never smoker alcohol intake: current Smoking Status: Never smoker Substance Use Type: does not use Exam Initial Vital Signs Initial Vital Signs: Vital Signs Temperature 96.4 F L 04/22/22 12:39 Pulse Rate 77 04/22/22 12:39 Respiratory Rate 17 04/22/22 12:39 Blood Pressure 244/105 H 04/22/22 12:39 Pulse Oximetry 97 04/22/22 12:39 Oxygen Delivery Method 04/22/22 12:39 GENERAL: Alert pleasant 87-year-old female and in no acute distress. HEENT: Head atraumatic,EOMI, pupils reactive, face symmetric, moist mucous membranes CARDIOVASCULAR: Regular rate and rhythm without murmurs, rubs or gallops. RESPIRATORY: Breath sounds equal bilaterally, no wheezes rales or rhonchi. ABDOMEN: Soft, nontender. Normoactive bowel sounds all 4 quadrants. No guarding or rebound. EXTREMITIES: Normal range of motion, no clubbing or edema. Neurovascularly intact NEUROLOGICAL: Alert and oriented x4.Normal gait and speech. SKIN: Warm, dry, no laceration, no petechiae, no rashes or lesions. Course Orders Ordered: ED Orders 04/22/22 12:45 XR chest 1V Stat 04/22/22 13:12 Complete Blood Count AUTO DIFF Stat Comprehensive Metabolic Panel Stat Lipase Stat Magnesium Stat Partial Thromboplastin Time Stat Prothrombin Time INR Stat Troponin & CK Cardiac Panel Stat 04/22/22 14:30 Urine Culture Stat Urine Microscopic Stat Vital Signs Vital signs: Vital Signs - 8 hr 04/22/22 12:39 04/22/22 13:44 04/22/22 13:46 Temperature 96.4 F L Pulse Rate 77 77 74 Respiratory Rate 17 32 H 16 Blood Pressure 244/105 H Pulse Oximetry 97 96 Oxygen Delivery Method Room Air 04/22/22 13:46 04/22/22 14:00 04/22/22 14:00 Temperature Pulse Rate 70 Respiratory Rate 17 Blood Pressure 211/95 H 180/82 H Pulse Oximetry 96 Oxygen Delivery Method 04/22/22 14:27 04/22/22 14:27 04/22/22 14:30 Temperature Pulse Rate 68 Respiratory Rate 14 Blood Pressure 174/82 H 162/76 H Pulse Oximetry 97 Oxygen Delivery Method 04/22/22 14:30 Temperature Pulse Rate 67 Respiratory Rate 19 Blood Pressure Pulse Oximetry 97 Oxygen Delivery Method Medical Decision Making Lab Data Result diagrams: 04/22/22 13:12 04/22/22 13:12 Labs: Lab Results 04/22/22 04/22/22 04/22/22 Range/Units 13:12 13:12 13:12 WBC 6.9 (4.5-11.0) X10^3/uL RBC 4.45 (4.0-5.2) X10^6/uL Hgb 13.8 (12.0-16.0) g/dL Hct 41.3 (36-46) % MCV 92.9 (80-100) fL MCH 31.0 (26-34) PG MCHC 33.4 (30-36) % RDW 15.6 H (11.6-14.8) % Plt Count 224 (150-400) X10^3/uL Neut % (Auto) 62.2 (50-75) % Lymph % (Auto) 25.4 (25-40) % [place] % (Auto) 10.1 (3-14) % Eos % (Auto) 2.1 (2-4) % Baso % (Auto) 0.2 (0-2) % Neut # (Auto) 4300 (2903-7243) /uL Lymph # (Auto) 1800 (0278-4665) /uL [place] # (Auto) 700 (0-900) /uL Eos # (Auto) 100 (0-450) /uL Baso # (Auto) 0 (0-100) /uL PT 16.3 H (10.1-12.7) SECONDS INR 1.5 H (0.9-1.3) APTT 35 (26.4-36.2) SECONDS Sodium 137 (137-145) mmol/L Potassium 4.2 (3.4-5.1) mmol/L Chloride 104 (98-107) mmol/L Carbon Dioxide 24 (22-32) mmol/L BUN 23 H (7-17) mg/dL Creatinine 1.03 (0.52-1.04) mg/dL Estimated GFR 53 L (>60) mL/min BUN/Creatinine Ratio 22.3 H (6-22) Glucose 113 H (80-110) mg/dL Calcium 9.1 (8.4-10.2) mg/dL Magnesium 1.9 (1.6-2.3) mg/dL Total Bilirubin 1.7 H (0.2-1.3) mg/dL AST 35 (14-36) IU/L ALT 18 (<35) IU/L Alkaline Phosphatase 85 (38-126) U/L Total Creatine Kinase 88 (30-135) U/L CK-MB (CK-2) TNP CK-MB (CK-2) Rel Index TNP Troponin I < 0.012 (0.01-0.034) ng/mL Total Protein 7.2 (6.3-8.2) g/dL Albumin 4.0 (3.5-5.0) g/dL Globulin 3.2 (1.7-4.1) g/dL Albumin/Globulin Ratio 1.3 (1.0-2.8) Lipase 53 (23-300) U/L Urine RBC (0-5/HPF) Urine WBC (0-5/HPF) Ur Squamous Epith Cells (0-5/HPF) Urine Bacteria (None) Ur Culture Indicated? 04/22/22 Range/Units 14:30 WBC (4.5-11.0) X10^3/uL RBC (4.0-5.2) X10^6/uL Hgb (12.0-16.0) g/dL Hct (36-46) % MCV (80-100) fL MCH (26-34) PG MCHC (30-36) % RDW (11.6-14.8) % Plt Count (150-400) X10^3/uL Neut % (Auto) (50-75) % Lymph % (Auto) (25-40) % [place] % (Auto) (3-14) % Eos % (Auto) (2-4) % Baso % (Auto) (0-2) % Neut # (Auto) (5465-6530) /uL Lymph # (Auto) (3659-2921) /uL [place] # (Auto) (0-900) /uL Eos # (Auto) (0-450) /uL Baso # (Auto) (0-100) /uL PT (10.1-12.7) SECONDS INR (0.9-1.3) APTT (26.4-36.2) SECONDS Sodium (137-145) mmol/L Potassium (3.4-5.1) mmol/L Chloride (98-107) mmol/L Carbon Dioxide (22-32) mmol/L BUN (7-17) mg/dL Creatinine (0.52-1.04) mg/dL Estimated GFR (>60) mL/min BUN/Creatinine Ratio (6-22) Glucose (80-110) mg/dL Calcium (8.4-10.2) mg/dL Magnesium (1.6-2.3) mg/dL Total Bilirubin (0.2-1.3) mg/dL AST (14-36) IU/L ALT (<35) IU/L Alkaline Phosphatase (38-126) U/L Total Creatine Kinase (30-135) U/L CK-MB (CK-2) CK-MB (CK-2) Rel Index Troponin I (0.01-0.034) ng/mL Total Protein (6.3-8.2) g/dL Albumin (3.5-5.0) g/dL Globulin (1.7-4.1) g/dL Albumin/Globulin Ratio (1.0-2.8) Lipase (23-300) U/L Urine RBC None seen (0-5/HPF) Urine WBC 1-5/hpf (0-5/HPF) Ur Squamous Epith Cells 0-1 /hpf (0-5/HPF) Urine Bacteria Few (2-10) H (None) Ur Culture Indicated? Specimen cultured Urine Dip Bedside Urine Glucose Negative Bedside Urine Bilirubin - Negative Bedside Urine Ketone - Negative Urine Specific [place] 1.015 Bedside Urine Occult Blood - Negative Bedside Urine pH 6.0 Bedside Urine Protein - Negative Bedside Urine Urobilinogen - Negative Bedside Urine Nitrite - Negative Bedside Urine Leukocytes + 70 Esterase Point of care testing: Urine Dip Bedside Urine Glucose Negative Bedside Urine Bilirubin - Negative Bedside Urine Ketone - Negative Urine Specific [place] 1.015 Bedside Urine Occult Blood - Negative Bedside Urine pH 6.0 Bedside Urine Protein - Negative Bedside Urine Urobilinogen - Negative Bedside Urine Nitrite - Negative Bedside Urine Leukocytes + 70 Esterase ECG Data Interpretation: Atrial fibrillation at 72 p.r she has QRS [address] changes no T-wave inversions previous EKG in 2016 shows a normal sinus rhythm MDM Narrative Medical decision making narrative: Patient is here for some chest heaviness and elevated prepped blood pressure and anxiety. His chest heaviness started last night she has no EKG changes she has a negative troponin she is no longer complaining of chest pain. We talked mostly about her anxiety and being alone in her apartment. She says this is completely new we talked about ways to control that. She is a little worried is this is never happened to her and she does not know why. Emergency department workup is overall reassuring. Blood work chest x-ray and EKG. I do encourage her to check her blood pressure at home and monitor it she may need change in medication. Her daughter is at bedside the whole time as well and has part icipated in this discussion. Discharge Plan Departure Patient Disposition: Home Clinical Impression: Acute UTI, Hypertension, Anxiety Instructions: DI for High Blood Pressure, DI for Urinary Tract Infection (UTI) Activity Restrictions/Additional Instructions: *You have been diagnosed with high blood pressure *What to do: At this time please take your blood pressure medication as prescribed. You do have a very minor bladder infection. Try some of the things we talked about in regards to your anxiety *Continue to take medications as directed *Follow up with your primary care provider in 2-3 days or call [phone] *Return to ER if you should have increasing chest pain heaviness shortness of breath [or] any new, worsening or concerning symptoms Prescriptions: New cephalexin 500 mg capsule 500 mg PO BID 5 Days Qty: 10 0RF No Action LEVOTHYROXINE SODIUM (SYNTHROID) tablet 0.125 mg PO DAILY Qty: 0 [CO Q-10] 1 tab PO DAILY Qty: 0 [OMEGA 3] 1,000 mg PO DAILY Qty: 0 atorvastatin 40 MG tablet 40 mg PO HS Qty: 0 allopurinol 300 MG tablet 300 mg PO QDAY Qty: 0 cyanocobalamin (vitamin B-12) 1,000 MCG tablet extended release 1,000 mcg PO DAILY Qty: 0 [DTEZLA] 1 tab PO Q12H Qty: 0 [SUN-CHLORENA] 200 g PO 10XD Qty: 0 [TUMERIC] 1 cap PO DAILY Qty: 0 albuterol sulfate 90 mcg/actuation HFA aerosol inhaler 2 puff INHALATION Q4-6H PRN (Reason: shortness of breath) Qty: 8.5 1RF levothyroxine 125 mcg Tablet 125 mcg PO DAILY valsartan-hydrochlorothiazide 320 mg capsule 320 mg PO DAILY oxycodone 5 mg tablet 5 mg PO Q4-6H PRN (Reason: pain) Qty: 30 0RF diazepam 5 MG tablet 5 mg PO TID PRN (Reason: Anxiety) Label Comments: does not take anymore. hydroxyzine pamoate 25 mg Capsule 25 mg PO Q6H PRN (Reason: Nausea And Vomiting) Qty: 30 0RF Referrals: Hollie Constantino MD [Primary Care Provider] - Visit Report Forms: Patient Portal/API
[2022-04-22 14:27] VITALS: BP 174/82; PULSE 68; RESP 14; O2SAT 97
[2022-04-22 14:30] VITALS: BP 162/76; PULSE 67; RESP 19; O2SAT 97
[2022-04-22 14:57] LABS: RBC Urine None Seen (0-5/HPF); Squamous Epithelial Cell Urine 0-1 /HPF (0-5/HPF); WBC Urine 1-5/HPF (0-5/HPF)
[2022-04-22 14:58] LABS: Bacteria Urine Few (2-10); Culture Indicated Urine Specimen Cultured
== END 2022-04-22 15:27 | disposition home or self-care (01) ==
PROVIDERS: Emergency Provider Emergency Medicine; Family Provider Naturopath; PCP Internal Medicine
DX: N39.0 Urinary tract infection, site not specified (principal); I10 Essential (primary) hypertension; F41.9 Anxiety disorder, unspecified; R07.89 Other chest pain
CPT/HCPCS: 71045; 80053; 81003; 81015; 82550; 83690; 83735; 84484; 85025; 85610; 85730; 87086; 93005; 99283; 99284

== ENCOUNTER → 2022-04-29 16:40 | Outpatient (CLI) | payer MEDICARE, OTHER, SELFPAY ==
[2018-02-10 18:18] VITALS: BMI 37.5
--- NOTE | 2022-04-29 16:42 | DI.RAD.S_ITS ---
PROCEDURE: XR SHOULDER LT MIN 2V INDICATIONS: Left shoulder pain TECHNIQUE: 3 views of the shoulder were acquired. COMPARISON: [facility], , SHOULDER MINIMUM 2VIEW RIGHT, 08/07/2017, 14:44. [facility], , XR CHEST 2V, 09/29/2018, 21:10. FINDINGS: Bones: No fractures or dislocations. No suspicious bony lesions. Visualized ribs appear intact. Mild joint narrowing with periarticular osteophyte formation of the acromioclavicular and glenohumeral joint. Lower cervical spine fixation hardware incompletely visualized. Soft tissues: No suspicious soft tissue calcifications. IMPRESSION: Acromioclavicular and glenohumeral joint degeneration. Dictated by: Iván Scales [facility] Interpreted: Abhay Gupta MD on 04/29/2022 at 17:03 Transcribed by: TAYLOR on 04/29/2022 at 17:03 Approved by: Abhay Gupta M.D. on 04/29/2022 at 20:04
== END ==
PROVIDERS: Family Provider Naturopath; PCP Internal Medicine; Referring Provider Internal Medicine; Visit Provider Internal Medicine
DX: M25.512 Pain in left shoulder (principal); M19.012 Primary osteoarthritis, left shoulder
CPT/HCPCS: 73030

== ENCOUNTER → 2022-06-29 12:16 | Outpatient (CLI) | payer MEDICARE, OTHER, SELFPAY ==
[2018-02-10 18:18] VITALS: BMI 37.5
== END ==
PROVIDERS: Family Provider Naturopath; PCP Internal Medicine; Referring Provider Internal Medicine; Visit Provider Internal Medicine
DX: Z78.0 Asymptomatic menopausal state (principal); Z13.820 Encounter for screening for osteoporosis; Z90.710 Acquired absence of both cervix and uterus
CPT/HCPCS: 77080

== ENCOUNTER → 2023-07-24 12:41 | Outpatient (CLI) | payer MEDICARE, OTHER, SELFPAY ==
[2018-02-10 18:18] VITALS: BMI 37.5
--- NOTE | 2023-07-24 | DI.MG.S_ITS ---
BILATERAL DIGITAL SCREENING MAMMOGRAM 3D/2D WITH CAD: 07/24/2023 CLINICAL: Routine screening. Comparison is made to exams dated: 07/26/2021 mammogram - [facility], 05/03/2020 mammogram, and 01/05/2019 mammogram - [facility]. There are scattered areas of fibroglandular density in both breasts (category b / 25%-50% glandular tissue). Current study was also evaluated with a Computer Aided Detection (CAD) system. There are benign vascular calcifications in both breasts. There also is a biopsy clip in the right breast. No significant masses, calcifications, or other findings are seen in either breast. There has been no significant interval change. IMPRESSION: BENIGN There is no mammographic evidence of malignancy. A 1 year screening mammogram is recommended. This exam was interpreted at Station ID: [id number]. NOTE: For mammograms, a report in lay terms will be sent to the patient. Approximately 15% of breast malignancies will not be visualized mammographically. In the management of a palpable breast mass, a negative mammogram must not discourage biopsy of a clinically suspicious lesion. Electronically Signed By: Gilbert [email or web address]/[email or web address]:07/26/2023 08:09:00 letter sent: Normal Exam ACR BI-RADS Category 2: Benign Finding(s) 3342F
== END ==
PROVIDERS: Family Provider Naturopath; PCP Internal Medicine; Referring Provider Internal Medicine; Visit Provider Internal Medicine
DX: Z12.31 Encounter for screening mammogram for malignant neoplasm of breast (principal)
CPT/HCPCS: 77063; 77067

== ENCOUNTER → 2024-08-25 13:27 | Outpatient (CLI) | payer MEDICARE, OTHER, SELFPAY ==
[2018-02-10 18:18] VITALS: BMI 37.5
--- NOTE | 2024-08-25 | DI.MG.S_ITS ---
BILATERAL DIGITAL SCREENING MAMMOGRAM 3D/2D WITH CAD: 08/25/2024 CLINICAL: Routine screening. Comparison is made to exams dated: 07/24/2023 mammogram, 07/26/2021 mammogram - [facility], and 05/03/2020 mammogram - [facility]. There are scattered areas of fibroglandular density (category b / 25%-50% glandular tissue). Current study was also evaluated with a Computer Aided Detection (CAD) system. There are benign vascular calcifications in both breasts. There also are biopsy clips in the right breast. No significant masses, calcifications, or other findings are seen in either breast. There has been no significant interval change. IMPRESSION: BENIGN There is no mammographic evidence of malignancy. A 1 year screening mammogram is recommended. This exam was interpreted at Station ID: [id number]. NOTE: For mammograms, a report in lay terms will be sent to the patient. Approximately 15% of breast malignancies will not be visualized mammographically. In the management of a palpable breast mass, a negative mammogram must not discourage biopsy of a clinically suspicious lesion. Electronically Signed By: Jeana gaspar/jorge:08/25/2024 15:52:21 letter sent: Normal Exam ACR BI-RADS Category 2: Benign
== END ==
PROVIDERS: Family Provider Naturopath; PCP Internal Medicine; Referring Provider Internal Medicine; Visit Provider Internal Medicine
DX: Z12.31 Encounter for screening mammogram for malignant neoplasm of breast (principal)
CPT/HCPCS: 77063; 77067